=== PATIENT | male | born 1995 | race Caucasian/White ===

== ENCOUNTER 2017-08-04 20:22 | Emergency (ER) | payer OTHER ==
[~2017-08-04] VITALS: Ht 182.9 cm; Wt 57.1 kg
[~2017-08-04 20:22] MED LIST: ALBU90OI INH; AMOX50SU PO; CEPH250A PO; METPHE20ER PO; RXCODACESY PO; [UNRECOGNIZED DRUG - OTHER]
[2017-08-04] MEDS ORDERED: IBUP600 PO (23:57)
[2017-08-04] MEDS ORDERED: Amoxicillin875 MG PO (23:57)
== END 2017-08-05 00:31 | disposition home or self-care (01) ==
LOC: ER 20:22
DX: H66.92 Otitis media, unspecified, left ear (principal); Z88.5 Allergy status to narcotic agent